=== PATIENT | male | born 1945 | race Caucasian/White ===

== ENCOUNTER 2021-11-27 18:42 | Inpatient (IN) | payer MEDICARE, BC ==
[2021-11-27] MEDS ORDERED: Sodium Chloride 0.9% 10 ML Syringe FLUSH PRN (19:30)
[2021-11-27] MEDS ORDERED: Ibuprofen 600 MG Tab PO ONE (19:30)
[2021-11-27 19:46] LABS: CORONAVIRUS COVID-19 NAA NEGATIVE (NEGATIVE)
[2021-11-27] MEDS ORDERED: Lactated Ringers 1,000 ML IV ONE (20:20)
[2021-11-27] MEDS ORDERED: Doxycycline 100 MG in Sodium Chloride 0.9% 100 ML IV ONE (21:39)
[2021-11-27] MEDS ORDERED: cefTRIAXone 2 GM in Sodium Chloride 0.9% 50 ML IV SCH (22:00)
[2021-11-27] MEDS ORDERED: Albuterol 0.083% 2.5 MG/3 ML Neb Soln NEB PRN (22:55)
[2021-11-27] MEDS ORDERED: Ondansetron 4 MG/2 ML SDV IV PRN (22:55)
[2021-11-27] MEDS ORDERED: oxyCODONE 5 MG Tab PO PRN (22:55)
[2021-11-27] MEDS ORDERED: Docusate Sodium 100 MG Cap PO PRN (22:55)
[2021-11-27] MEDS ORDERED: Acetaminophen 325 MG Tab PO PRN (22:55)
[2021-11-27] MEDS ORDERED: Albuterol/Ipratropium 3.0-0.5 MG/3 ML Neb Soln NEB PRN (22:55)
[2021-11-27] MEDS ORDERED: Ondansetron 4 MG Tab.DIS PO PRN (22:55)
[2021-11-27] MEDS ORDERED: Furosemide 40 MG Tab PO SCH (22:55)
[2021-11-27] MEDS: Sodium Chloride 0.9% 1,000 ML IV SCH (23:21)
[2021-11-27] MEDS: Doxycycline 100 MG in Sodium Chloride 0.9% 100 ML IV SCH (23:22)
[2021-11-27] MEDS: Warfarin 5 MG Tab PO SCH (23:55)
[2021-11-27] MEDS: metFORMIN 500 MG Tab PO SCH (23:55)
[2021-11-28] MEDS: cefTRIAXone 2 GM in Sodium Chloride 0.9% 50 ML IV SCH ×2 (00:30→23:37)
[2021-11-28] MEDS: Sodium Chloride 0.9% 1,000 ML IV SCH (07:26)
[2021-11-28] MEDS: Insulin Lispro 100 Unit/ML 3 ML KwikPen SUBCUT SCH ×4 (07:45→21:10)
[2021-11-28] MEDS: metFORMIN 500 MG Tab PO SCH ×2 (08:59→20:30)
[2021-11-28] MEDS: Pantoprazole 40 MG Tab.CR PO SCH (08:59)
[2021-11-28] MEDS: Diltiazem 180 MG Cap.CD PO SCH (08:59)
[2021-11-28] MEDS ORDERED: Allopurinol 100 MG Tab PO SCH (09:00)
[2021-11-28] MEDS: Losartan 50 MG Tab PO SCH (09:00)
[2021-11-28] MEDS: Niacin 250 MG Tab.ER PO SCH (09:01)
[2021-11-28] MEDS: Aspirin 81 MG Tab.EC PO SCH (09:01)
[2021-11-28] MEDS ORDERED: Furosemide 40 MG Tab PO ONE ×2 (10:20→12:45)
[2021-11-28] MEDS: Doxycycline 100 MG in Sodium Chloride 0.9% 100 ML IV SCH (12:39)
[2021-11-28] MEDS ORDERED: Benzocaine/Cetylpyridinium/Menthol Lozenge MUCMEM PRN (16:55)
[2021-11-28] MEDS: Warfarin 5 MG Tab PO SCH (20:30)
[2021-11-28] MEDS ORDERED: Furosemide 40 MG Tab PO SCH (21:00)
[2021-11-28] MEDS ORDERED: cefTRIAXone 2 GM in Sodium Chloride 0.9% 50 ML IV SCH (22:11)
[2021-11-29] MEDS: Doxycycline 100 MG in Sodium Chloride 0.9% 100 ML IV SCH (00:21)
[2021-11-29] MEDS: Insulin Lispro 100 Unit/ML 3 ML KwikPen SUBCUT SCH (07:54)
[2021-11-29] MEDS: Diltiazem 180 MG Cap.CD PO SCH (08:52)
[2021-11-29] MEDS: Pantoprazole 40 MG Tab.CR PO SCH (08:52)
[2021-11-29] MEDS: Aspirin 81 MG Tab.EC PO SCH (08:52)
[2021-11-29] MEDS: Niacin 250 MG Tab.ER PO SCH (08:53)
[2021-11-29] MEDS: Losartan 50 MG Tab PO SCH (08:54)
[2021-11-29] MEDS: metFORMIN 500 MG Tab PO SCH (08:54)
[2021-11-29] MEDS ORDERED: Allopurinol 100 MG Tab PO SCH (09:00)
== END 2021-11-29 11:02 | disposition home or self-care (01) | DRG 193 ==
LOC: JP.ED 18:42 → JP.MS 22:09
PROVIDERS: ADMIT Hospitalist; ATTEND Internal Medicine
DX: J18.9 Pneumonia, unspecified organism (principal); I21.A1 Myocardial infarction type 2; I48.91 Unspecified atrial fibrillation; I48.20 Chronic atrial fibrillation, unspecified; Z66 Do not resuscitate; Z20.822 Contact with and (suspected) exposure to COVID-19; H54.7 Unspecified visual loss; E78.00 Pure hypercholesterolemia, unspecified; M19.90 Unspecified osteoarthritis, unspecified site; M10.9 Gout, unspecified; G89.29 Other chronic pain; M54.9 Dorsalgia, unspecified; E11.9 Type 2 diabetes mellitus without complications; Z96.652 Presence of left artificial knee joint; Z96.641 Presence of right artificial hip joint; I11.0 Hypertensive heart disease with heart failure; Z79.82 Long term (current) use of aspirin; Z79.01 Long term (current) use of anticoagulants; Z79.84 Long term (current) use of oral hypoglycemic drugs; Z88.8 Allergy status to other drugs, medicaments and biological substances; Z79.899 Other long term (current) drug therapy; I10 Essential (primary) hypertension
CPT/HCPCS: 0241U; 36415; 71045; 71045-26; 71046; 71046-26; 80048; 80053; 81001; 82947; 83605; 83690; 83880; 84145; 84484; 85025; 85379; 85610; 86140; 87040; 93005; 93010; 99222; 99232; 99238; 99285; 99285-25; A9270-GY; J0696; J1815; J3490; J7030; J7120

== ENCOUNTER 2022-12-22 07:20 | Day surgery (SDC) | payer MEDICARE, BC ==
[2022-12-22] MEDS ORDERED: Sodium Chloride 0.9% 10 ML Syringe FLUSH PRN (08:00)
== END 2022-12-22 09:03 | disposition home or self-care (01) ==
LOC: JP.SDS 07:20
PROVIDERS: ATTEND Ophthalmology
DX: H26.9 Unspecified cataract (principal); Z79.899 Other long term (current) drug therapy; Z88.1 Allergy status to other antibiotic agents; Z88.8 Allergy status to other drugs, medicaments and biological substances
CPT/HCPCS: J3490

== ENCOUNTER 2023-01-05 06:24 | Day surgery (SDC) | payer MEDICARE, BC ==
[2023-01-05] MEDS ORDERED: Sodium Chloride 0.9% 10 ML Syringe FLUSH PRN (07:00)
== END 2023-01-05 08:16 | disposition home or self-care (01) ==
LOC: JP.SDS 06:24
PROVIDERS: ATTEND Ophthalmology
DX: E11.36 Type 2 diabetes mellitus with diabetic cataract (principal); H26.9 Unspecified cataract; I48.20 Chronic atrial fibrillation, unspecified; E78.5 Hyperlipidemia, unspecified; E66.9 Obesity, unspecified; Z68.41 Body mass index [BMI] 40.0-44.9, adult
CPT/HCPCS: 66984; J3490; V2632